=== PATIENT | male | born 1970 | race Caucasian/White ===

== ENCOUNTER 2019-09-26 12:19 | Inpatient (IN) | payer OTHER ==
[2019-09-26 15:29] VITALS: BMI 32.5
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
[2019-09-26] MEDS ORDERED: PROCHLORPERAZINE MALEATE 5 MG TABLET PO PRN (16:11)
[2019-09-26] MEDS ORDERED: ACETAMINOPHEN 325 MG TABLET (FP) PO PRN ×2 (16:11)
[2019-09-26] MEDS ORDERED: MENTHOL/PHENOL 1 EACH UD MM PRN (16:11)
[2019-09-26] MEDS ORDERED: IBUPROFEN 400 MG TABLET (FP) PO PRN (16:11)
[2019-09-26] MEDS ORDERED: MAG HYDROX/AL HYDROX/SIMETH 30 ML UNIT-DOSE CUP PO PRN (16:11)
[2019-09-26] MEDS ORDERED: METHOCARBAMOL 500 MG TABLET PO PRN (16:11)
[2019-09-26] MEDS ORDERED: BISMUTH SUBSALICYLATE 524 MG/30 ML UD PO PRN (16:11)
[2019-09-26] MEDS ORDERED: MAGNESIUM HYDROX 2400MG/30ML ORAL SUSPENSION 30 ML CUP PO PRN (16:11)
[2019-09-26] MEDS ORDERED: MAGNESIUM CITRATE 300 ML BOTTLE PO PRN (16:11)
[2019-09-26] MEDS ORDERED: hydrOXYzine PAMOATE 25 MG CAPSULE (FP) PO PRN (16:11)
[2019-09-26] MEDS ORDERED: cloNIDine HCL 0.1 MG TABLET PO PRN (16:13)
[2019-09-26] MEDS: diazePAM 5 MG TABLET PO PRN (17:30)
[2019-09-26] MEDS: THIAMINE HCL 100 MG TABLET (FP) PO SCH (22:12)
[2019-09-26] MEDS ORDERED: METHADONE HCL 10 MG TABLET (FOR DETOX USE ONLY) PO ONE (23:00)
[2019-09-27] MEDS: NICOTINE POLACRILEX 2 MG GUM BUC PRN ×4 (00:42→18:29)
--- NOTE | 2019-09-27 09:56 | CONSULT ---
[facility] Consult - Data Date of interview: 09/27/19 [facility] Identifying data: Patient is a 48 year old single male, father of two, unemployed, homeless, and is not supported with any financial assistance. Patient admitted to for alcohol, cocaine and opiate dependence. Substance Abuse History: Smoking Cessation. Smoking history: Current every day smoker. Hx Chewing Tobacco Use: No. Initiated information on smoking cessation : No. - Substances abused. Alcohol. Substance route: Oral. Frequency: Daily. Amount used: 4 cans of 24 oz beers. Age of first use: 20. Date of last use: 09/26/19. Heroin. Substance route: Inhalation. Frequency: Daily. Amount used: 10-11bags. Age of first use: 18. Date of last use: . Crack. Substance route: Smoking. Frequency: Daily. Amount used: 6-7 bags. Age of first use: 18. Date of last use: 09/26/19 Medical History: denies. endorses good health. Psychiatric History: Patient denies history of psychiatric hospitalizations and suicide attempt. Mr. Gupta reports seeing a psychiatrist once in an outpatient setting approximately 10 years ago for depression. Patient unable to recall the medications prescribed. At present patient reports feeling fatigue as he had difficulty sleeping last night. Physical/Sexual Abuse/Trauma History: denies. Mental Status Exam - Mental Status Exam Alert and Oriented to: Time, Place, Person Cognitive Function: Good Patient Appearance: Well Groomed Mood: Withdrawn Affect: Mood Congruent Patient Behavior: Fatigued, Cooperative Speech Pattern: Appropriate Voice Loudness: Moderately Soft/Quiet Thought Process: Intact, Goal Oriented Thought Disorder: Not Present Hallucinations: Denies Suicidal Ideation: Denies Homicidal Ideation: Denies Insight/Judgement: Poor Sleep: Poorly Appetite: Fair Muscle strength/Tone: Normal Gait/Station: Normal Psychiatric Findings - Problem List ([place] 1, 2,3) (1) Opiate dependence Current Visit: Yes Status: Acute (2) Cocaine dependence Current Visit: Yes Status: Chronic Qualifiers: Substance use status: uncomplicated Qualified Code(s): F14.20 - Cocaine dependence, uncomplicated (3) Nicotine dependence Current Visit: Yes Status: Chronic Qualifiers: Nicotine product type: cigarettes (4) Substance-induced sleep disorder Current Visit: Yes Status: Acute - Initial Treatment Plan Initial Treatment Plan: Psychoeducation provided. Detoxification in progress. Melatonin 5mg ordered for insomnia.
[2019-09-27] MEDS ORDERED: METHADONE HCL 5 MG TABLET (FOR DETOX USE ONLY) PO ONE ×2 (10:00→12:00)
[2019-09-27] MEDS: PRENATAL VITAMINS W/ FOLIC ACID TABLET (FP) PO SCH (10:34)
[2019-09-27 10:40] LABS: HEMATOCRIT 39.9 % (35.4-49); HEMOGLOBIN 13.3 GM/dL (11.7-16.9); MCH 31.2 pg (25.7-33.7); MCHC 33.2 g/dl (32.0-35.9); MEAN CELL VOLUME 94.1 fl (80-96); MEAN PLT VOLUME 9.2 fl (7.5-11.1); PLATELET COUNT 321 K/MM3 (134-434); RBC 4.24 M/mm3 (4.00-5.60); RDW 14.5 % (11.9-15.9); WHITE BLOOD COUNT 9.2 K/mm3 (4.0-10.0)
[2019-09-27 10:56] LABS: ALBUMIN 3.6 g/dl (3.4-5.0); BILIRUBIN,TOTAL 0.2 mg/dL (0.2-1); BLOOD UREA NITROGEN 20.4 mg/dL (7-18); CALCIUM 9.2 mg/dL (8.5-10.1); POTASSIUM 4.5 mmol/L (3.5-5.1); TOT PROT 7.1 g/dl (6.4-8.2)
--- NOTE | 2019-09-27 11:44 | PN ---
[facility] CIWA - CIWA Score Nausea/Vomitin-No Nausea/No Vomiting Muscle Tremors: 4-Moderate,w/Arms Extend Anxiety: 4-Mod. Anxious/Guarded Agitation: 4-Moderately Restless Paroxysmal Sweats: 3 Orientation: 0-Oriented Tacttile Disturbances: 0-None Auditory Disturbances: 0-None Visual Disturbances: 0-None Headache: 0-None Present CIWA-Ar Total Score: 15 S COWS - Scale Resting Pulse: 0= [place] 80 or Below Sweatin= Chills/Flushing Restless Observation: 1= Difficult to Sit Still Pupil Size: 0= Normal to Room Light Bone or Joint Aches: 2= Severe Diffuse Aches Runny Nose/ Eye Tearin= Runny Nose/Eyes GI Upset > 30mins: 0= None Tremor Observation of Outstretched Hands: 2= Slight Tremor Visible Yawning Observation: 2= >3x During Session Anxiety or Irritability: 2=Irritable/Anxious Goose Flesh Skin: 0=Smooth Skin COWS Score: 12 S Progress Note (SOAP) Subjective: sweats shakes yawning agitation body aches restless Objective: 09/27/19 13:49 Vital Signs Temperature 98.0 F 09/27/19 09:38 Pulse Rate 60 09/27/19 09:38 Respiratory Rate 18 09/27/19 09:38 Blood Pressure 138/65 09/27/19 09:38 O2 Sat by Pulse Oximetry (%) Laboratory Tests 09/27/19 09/27/19 09/27/19 07:20 07:20 07:20 WBC 9.2 RBC 4.24 Hgb 13.3 Hct 39.9 MCV 94.1 MCH 31.2 MCHC 33.2 RDW 14.5 Plt Count 321 MPV 9.2 Sodium 138 Potassium 4.5 Chloride 102 Carbon Dioxide 33 H Anion Gap 3 L BUN 20.4 H Creatinine 1.0 Est GFR (CKD-EPI)AfAm 104.15 Est GFR (CKD-EPI)NonAf 89.86 Random Glucose 108 H Calcium 9.2 Total Bilirubin 0.2 AST 39 H ALT 78 H Alkaline Phosphatase 176 H Total Protein 7.1 Albumin 3.6 RPR Titer Nonreactive labs noted elevated BUN noted; encourage water intake aaox3 ambulating no acute distress Assessment: 09/27/19 13:50 withdrawals will modify methadone taper; pt in agreement Plan: continue with new methadone taper as ordered increase fluids
[2019-09-27] MEDS: MELATONIN 5 MG TABLETS PO PRN (22:10)
[2019-09-27] MEDS: THIAMINE HCL 100 MG TABLET (FP) PO SCH (22:10)
[2019-09-27] MEDS: diazePAM 5 MG TABLET PO PRN (22:10)
[2019-09-28] MEDS ORDERED: METHADONE HCL 5 MG TABLET (FOR DETOX USE ONLY) ONE (09:27)
[2019-09-28] MEDS ORDERED: METHADONE HCL 10 MG TABLET (FOR DETOX USE ONLY) ONE (09:28)
[2019-09-28] MEDS ORDERED: METHADONE (DETOX) 20 MG, METHADONE (DETOX) 5 MG PO ONE (10:00)
[2019-09-28] MEDS ORDERED: METHADONE HCL 10 MG TABLET (FOR DETOX USE ONLY) PO ONE (10:00)
[2019-09-28] MEDS: PRENATAL VITAMINS W/ FOLIC ACID TABLET (FP) PO SCH (10:00)
--- NOTE | 2019-09-28 10:07 | EKG ---
Test Reason : Blood Pressure : / mmHG Vent. Rate : 054 BPM Atrial Rate : 054 BPM P-R Int : 142 ms QRS Dur : 080 ms QT Int : 452 ms P-R-T Axes : 074 -13 004 degrees QTc Int : 428 ms SINUS BRADYCARDIA OTHERWISE NORMAL ECG NO PREVIOUS ECGS AVAILABLE Confirmed by TIFF GOLD MD ([id number]) on 09/28/2019 10:07:23 AM Referred By: Confirmed By:TIFF GOLD MD
--- NOTE | 2019-09-28 11:12 | PN ---
[facility] CIWA - CIWA Score Nausea/Vomitin-No Nausea/No Vomiting Muscle Tremors: 1-None Visible, but [place] Anxiety: 3 Agitation: 1-Slight > Activity Paroxysmal Sweats: 1-Minimal Palms Moist Orientation: 0-Oriented Tacttile Disturbances: 2-Mild Itch/Numbness/Burn Auditory Disturbances: 0-None Visual Disturbances: 2-Mild Sensitivity Headache: 0-None Present CIWA-Ar Total Score: 10 [facility] COWS - Scale Resting Pulse: 1= [place] 81-100 Sweatin= Chills/Flushing Restless Observation: 1= Difficult to Sit Still Pupil Size: 0= Normal to Room Light Bone or Joint Aches: 1= Mild Discomfort Runny Nose/ Eye Tearin= Runny Nose/Eyes GI Upset > 30mins: 1= Stomach Cramp Tremor Observation of Outstretched Hands: 1= Tremor [place], Not Seen Yawning Observation: 1= 1-2x During Session Anxiety or Irritability: 2=Irritable/Anxious Goose Flesh Skin: 0=Smooth Skin COWS Score: 11 [facility] Progress Note (SOAP) Subjective: c/o interrupted sleep, chills, sweats, body aches Objective: 09/28/19 11:12 Vital Signs Temperature 98 F 09/28/19 09:54 Pulse Rate 84 09/28/19 09:54 Respiratory Rate 18 09/28/19 09:54 Blood Pressure 125/77 09/28/19 09:54 O2 Sat by Pulse Oximetry (%) Laboratory Last Values WBC 9.2 K/mm3 (4.0-10.0) 09/27/19 07:20 RBC 4.24 M/mm3 (4.00-5.60) 09/27/19 07:20 Hgb 13.3 GM/dL (11.7-16.9) 09/27/19 07:20 Hct 39.9 % (35.4-49) 09/27/19 07:20 MCV 94.1 fl (80-96) 09/27/19 07:20 MCH 31.2 pg (25.7-33.7) 09/27/19 07:20 MCHC 33.2 g/dl (32.0-35.9) 09/27/19 07:20 RDW 14.5 % (11.9-15.9) 09/27/19 07:20 Plt Count 321 K/MM3 (134-434) 09/27/19 07:20 MPV 9.2 fl (7.5-11.1) 09/27/19 07:20 Sodium 138 mmol/L (136-145) 09/27/19 07:20 Potassium 4.5 mmol/L (3.5-5.1) 09/27/19 07:20 Chloride 102 mmol/L (98-107) 09/27/19 07:20 Carbon Dioxide 33 mmol/L (21-32) H 09/27/19 07:20 Anion Gap 3 MMOL/L (8-16) L 09/27/19 07:20 BUN 20.4 mg/dL (7-18) H 09/27/19 07:20 Creatinine 1.0 mg/dL (0.55-1.3) 09/27/19 07:20 Est GFR (CKD-EPI)AfAm 104.15 09/27/19 07:20 Est GFR (CKD-EPI)NonAf 89.86 09/27/19 07:20 Random Glucose 108 mg/dL (74-106) H 09/27/19 07:20 Calcium 9.2 mg/dL (8.5-10.1) 09/27/19 07:20 Total Bilirubin 0.2 mg/dL (0.2-1) 09/27/19 07:20 AST 39 U/L (15-37) H 09/27/19 07:20 ALT 78 U/L (13-61) H 09/27/19 07:20 Alkaline Phosphatase 176 U/L (45-117) H 09/27/19 07:20 Total Protein 7.1 g/dl (6.4-8.2) 09/27/19 07:20 Albumin 3.6 g/dl (3.4-5.0) 09/27/19 07:20 RPR Titer Nonreactive (NONREACTIVE) 09/27/19 07:20 Assessment: 09/28/19 14:02 Aox3 no acute distress EENT WNL Full ROM ambulating in the unit withdrawal sx Plan: increase fluids repeat CMP Patient advised to follow up with primary care provider upon d/c d/t elevated LFTS, patient verbalizes understanding continue detox continue to monitor
[2019-09-28] MEDS: NICOTINE POLACRILEX 2 MG GUM BUC PRN ×2 (19:57→22:07)
[2019-09-28] MEDS: MELATONIN 5 MG TABLETS PO PRN (22:06)
[2019-09-28] MEDS: THIAMINE HCL 100 MG TABLET (FP) PO SCH (22:06)
[2019-09-29] MEDS ORDERED: METHADONE HCL 5 MG TABLET (FOR DETOX USE ONLY) PO ONE (06:00)
[2019-09-29] MEDS: PRENATAL VITAMINS W/ FOLIC ACID TABLET (FP) PO SCH (09:04)
--- NOTE | 2019-09-29 09:53 | PN ---
[facility] CIWA - CIWA Score Nausea/Vomitin-No Nausea/No Vomiting Muscle Tremors: 2 Anxiety: 1-Mildly Anxious Agitation: 1-Slight > Activity Paroxysmal Sweats: 2 Orientation: 0-Oriented Tacttile Disturbances: 0-None Auditory Disturbances: 0-None Visual Disturbances: 0-None Headache: 0-None Present CIWA-Ar Total Score: 6 S COWS - Scale Resting Pulse: 0= [place] 80 or Below Sweatin= Chills/Flushing Restless Observation: 1= Difficult to Sit Still Pupil Size: 0= Normal to Room Light Bone or Joint Aches: 2= Severe Diffuse Aches Runny Nose/ Eye Tearin= Runny Nose/Eyes GI Upset > 30mins: 0= None Tremor Observation of Outstretched Hands: 1= Tremor [place], Not Seen Yawning Observation: 2= >3x During Session Anxiety or Irritability: 1=Feels Anxious/Irritable Goose Flesh Skin: 0=Smooth Skin COWS Score: 10 [facility] Progress Note (SOAP) Subjective: sweats shakes restless body aches Objective: 09/29/19 09:53 Vital Signs Temperature 99.2 F 09/29/19 09:29 Pulse Rate 74 09/29/19 09:29 Respiratory Rate 18 09/29/19 09:29 Blood Pressure 130/73 09/29/19 09:29 O2 Sat by Pulse Oximetry (%) Laboratory Tests 09/27/19 09/27/19 09/27/19 07:20 07:20 07:20 WBC 9.2 RBC 4.24 Hgb 13.3 Hct 39.9 MCV 94.1 MCH 31.2 MCHC 33.2 RDW 14.5 Plt Count 321 MPV 9.2 Sodium 138 Potassium 4.5 Chloride 102 Carbon Dioxide 33 H Anion Gap 3 L BUN 20.4 H Creatinine 1.0 Est GFR (CKD-EPI)AfAm 104.15 Est GFR (CKD-EPI)NonAf 89.86 Random Glucose 108 H Calcium 9.2 Total Bilirubin 0.2 AST 39 H ALT 78 H Alkaline Phosphatase 176 H Total Protein 7.1 Albumin 3.6 RPR Titer Nonreactive aaox3 ambulating no acute distress Assessment: 09/29/19 09:53 withdrawals Plan: continue detox increase fluids
[2019-09-29] MEDS ORDERED: METHADONE HCL 10 MG TABLET (FOR DETOX USE ONLY) PO ONE (10:00)
[2019-09-29 10:47] LABS: BILIRUBIN,TOTAL 0.4 mg/dL (0.2-1); BLOOD UREA NITROGEN 19.1 mg/dL (7-18); CALCIUM 9.1 mg/dL (8.5-10.1); POTASSIUM 4.1 mmol/L (3.5-5.1); TOT PROT 6.3 g/dl (6.4-8.2)
[2019-09-29 17:30] VITALS: TEMP 98.1
[2019-09-29] MEDS: NICOTINE POLACRILEX 2 MG GUM BUC PRN (20:16)
[2019-09-29] MEDS: THIAMINE HCL 100 MG TABLET (FP) PO SCH (22:01)
[2019-09-29] MEDS: MELATONIN 5 MG TABLETS PO PRN (22:02)
--- NOTE | 2019-09-30 08:22 | DS ---
[facility] Detox Discharge Summary Admission Date: 09/26/19 Discharge Date: 09/30/19 - History Present History: Alcohol Dependence, Cocaine Dependence, Opioid Dependence - Physical Exam Results Vital Signs: Vital Signs Temperature 98.1 F 09/30/19 06:47 Pulse Rate 58 L 09/30/19 06:47 Respiratory Rate 18 09/30/19 06:47 Blood Pressure 119/73 09/30/19 06:47 O2 Sat by Pulse Oximetry (%) - Treatment Hospital Course: Detox Protocol Followed, Responded well - Medication Discharge Medications: Ambulatory Orders NK [No Known Home Medication] 09/26/19 - Diagnosis (1) Opiate dependence Current Visit: Yes Status: Acute (2) Alcohol abuse Current Visit: Yes Status: Chronic (3) Cocaine dependence Current Visit: Yes Status: Chronic Qualifiers: Substance use status: uncomplicated Qualified Code(s): F14.20 - Cocaine dependence, uncomplicated (4) Nicotine dependence Current Visit: Yes Status: Chronic Qualifiers: Nicotine product type: cigarettes - AMA Did Patient Leave Against Medical Advice: Yes (States he has things to do. )
[2019-09-30] MEDS ORDERED: METHADONE HCL 5 MG TABLET (FOR DETOX USE ONLY) ONE (08:50)
[2019-09-30] MEDS ORDERED: METHADONE HCL 10 MG TABLET (FOR DETOX USE ONLY) ONE (08:50)
[2019-09-30] MEDS: PRENATAL VITAMINS W/ FOLIC ACID TABLET (FP) PO SCH (09:04)
[2019-09-30 09:31] VITALS: BP 129/79; PULSE 86
[2019-09-30] MEDS ORDERED: METHADONE (DETOX) 10 MG, METHADONE (DETOX) 5 MG PO ONE (10:00)
[2019-10-01] MEDS ORDERED: METHADONE HCL 10 MG TABLET (FOR DETOX USE ONLY) PO ONE (10:00)
[2019-10-02] MEDS ORDERED: METHADONE HCL 5 MG TABLET (FOR DETOX USE ONLY) PO ONE (06:00)
== END 2019-09-30 09:21 | disposition left against medical advice (07) | DRG 770 ==
LOC: YASAS 12:19 → Y3N 16:26 → Y6N 16:32
PROVIDERS: ADMIT Allergy & Immunology; ATTEND Allergy & Immunology
PROC: HZ2ZZZZ Detoxification Services for Substance Abuse Treatment (ICD-10-PCS; principal; 2019-09-26)
DX: F11.23 Opioid dependence with withdrawal (principal); F10.230 Alcohol dependence with withdrawal, uncomplicated; F14.20 Cocaine dependence, uncomplicated; F17.210 Nicotine dependence, cigarettes, uncomplicated; F19.282 Other psychoactive substance dependence with psychoactive substance-induced sleep disorder
CPT/HCPCS: 36415; 80053; 85027; 86593; 93005; 93010

== ENCOUNTER 2021-09-26 13:22 | Inpatient (IN) | payer OTHER ==
[2021-09-26] MEDS ORDERED: MAGNESIUM HYDROX 2400MG/30ML ORAL SUSPENSION 30 ML CUP PO PRN (13:52)
[2021-09-26] MEDS ORDERED: BISMUTH SUBSALICYLATE 262 MG/15 ML BTL PO PRN (13:52)
[2021-09-26] MEDS ORDERED: methaDONE HCL 10 MG TABLET (FOR DETOX USE ONLY) PO ONE (13:52)
[2021-09-26] MEDS ORDERED: MENTHOL/PHENOL 1 EACH UD MM PRN (13:52)
[2021-09-26] MEDS ORDERED: MAG HYDROX/AL HYDROX/SIMETH 30 ML UNIT-DOSE CUP PO PRN (13:52)
[2021-09-26] MEDS ORDERED: IBUPROFEN 400 MG TABLET (FP) PO PRN (13:52)
[2021-09-26] MEDS ORDERED: NICOTINE 10 MG CARTRIDGE (INHALER) IH PRN (13:52)
[2021-09-26] MEDS ORDERED: ACETAMINOPHEN 325 MG TABLET (FP) PO PRN ×2 (13:52)
[2021-09-26] MEDS ORDERED: ONDANSETRON *ODT* 4 MG TABLET SL PRN (13:52)
[2021-09-26] MEDS ORDERED: MAGNESIUM CITRATE 300 ML BOTTLE PO PRN (13:52)
[2021-09-26 14:06] VITALS: BMI 35.1
[2021-09-26] MEDS ORDERED: methaDONE HCL 10 MG TABLET (FOR DETOX USE ONLY) ONE (14:47)
[2021-09-26] MEDS: NICOTINE 14 MG/24 HOURS TOPICAL PATCH TD SCH (15:40)
[2021-09-26] MEDS: hydrOXYzine PAMOATE 25 MG CAPSULE (FP) PO SCH ×3 (15:55→22:31)
[2021-09-26 17:37] LABS: HEMATOCRIT 40.1 % (35.4-49); HEMOGLOBIN 13.3 GM/dL (11.7-16.9); MCH 30.6 pg (25.7-33.7); MCHC 33.3 g/dl (32.0-35.9); MEAN CELL VOLUME 91.9 fl (80-96); MEAN PLT VOLUME 8.8 fl (7.5-11.1); PLATELET COUNT 343 10^3/uL (134-434); RBC 4.36 M/mm3 (4.00-5.60); WHITE BLOOD COUNT 6.6 K/mm3 (4.0-10.0)
[2021-09-26 18:06] LABS: CALCIUM 9.1 mg/dL (8.5-10.1)
[2021-09-26 18:07] LABS: ALBUMIN 3.6 g/dl (3.4-5.0); BLOOD UREA NITROGEN 15.2 mg/dL (7-18)
[2021-09-26 18:09] LABS: CREATININE 1.1 mg/dL (0.55-1.3)
[2021-09-26 18:11] LABS: BILIRUBIN,TOTAL 0.7 mg/dL (0.2-1); TOT PROT 7.2 g/dl (6.4-8.2)
[2021-09-26] MEDS: MELATONIN 5 MG TABLETS PO SCH (22:30)
[2021-09-26] MEDS: THIAMINE HCL 100 MG TABLET (FP) PO SCH (22:31)
[2021-09-27] MEDS: hydrOXYzine PAMOATE 25 MG CAPSULE (FP) PO SCH ×5 (06:23→22:43)
[2021-09-27] MEDS ORDERED: methaDONE HCL 10 MG TABLET (FOR DETOX USE ONLY) ONE (09:39)
[2021-09-27] MEDS: METHOCARBAMOL 500 MG TABLET PO PRN ×2 (10:09→18:21)
[2021-09-27] MEDS: NICOTINE 14 MG/24 HOURS TOPICAL PATCH TD SCH (10:09)
[2021-09-27] MEDS: PRENATAL VITAMINS W/ FOLIC ACID TABLET (FP) PO SCH (10:09)
[2021-09-27] MEDS: cloNIDine HCL 0.1 MG TABLET PO PRN ×2 (10:10→18:22)
[2021-09-27 16:07] LABS: HIV INTERPRETATION NEGATIVE (NEGATIVE)
[2021-09-27] MEDS: THIAMINE HCL 100 MG TABLET (FP) PO SCH (22:43)
[2021-09-27] MEDS: MELATONIN 5 MG TABLETS PO SCH (22:43)
[2021-09-28] MEDS: hydrOXYzine PAMOATE 25 MG CAPSULE (FP) PO SCH ×5 (06:00→22:40)
[2021-09-28] MEDS: METHOCARBAMOL 500 MG TABLET PO PRN ×2 (06:01→22:40)
[2021-09-28] MEDS: NICOTINE POLACRILEX 2 MG GUM BUC PRN (07:31)
[2021-09-28] MEDS: NICOTINE 14 MG/24 HOURS TOPICAL PATCH TD SCH (09:35)
[2021-09-28] MEDS: PRENATAL VITAMINS W/ FOLIC ACID TABLET (FP) PO SCH (09:35)
[2021-09-28] MEDS: cloNIDine HCL 0.1 MG TABLET PO PRN (09:35)
[2021-09-28] MEDS: diazePAM 5 MG TABLET PO PRN ×2 (09:35→22:40)
[2021-09-28] MEDS ORDERED: methaDONE HCL 10 MG TABLET (FOR DETOX USE ONLY) PO ONE (10:00)
[2021-09-28 13:17] LABS: ALBUMIN 3.7 g/dl (3.4-5.0)
[2021-09-28 13:22] LABS: BILIRUBIN,DIRECT 0.1 mg/dL (0.0-0.2); BILIRUBIN,TOTAL 0.5 mg/dL (0.2-1); TOT PROT 7.3 g/dl (6.4-8.2)
[2021-09-28] MEDS: MELATONIN 5 MG TABLETS PO SCH (22:40)
[2021-09-28] MEDS: THIAMINE HCL 100 MG TABLET (FP) PO SCH (22:40)
[2021-09-29] MEDS: hydrOXYzine PAMOATE 25 MG CAPSULE (FP) PO SCH ×5 (05:46→22:11)
[2021-09-29] MEDS: diazePAM 5 MG TABLET PO PRN ×3 (05:46→22:12)
[2021-09-29] MEDS ORDERED: methaDONE HCL 10 MG TABLET (FOR DETOX USE ONLY) ONE (08:36)
[2021-09-29 10:01] LABS: ALBUMIN 3.7 g/dl (3.4-5.0)
[2021-09-29 10:04] LABS: BILIRUBIN,DIRECT 0.1 mg/dL (0.0-0.2)
[2021-09-29 10:05] LABS: BILIRUBIN,TOTAL 0.5 mg/dL (0.2-1)
[2021-09-29 10:06] LABS: TOT PROT 7.3 g/dl (6.4-8.2)
[2021-09-29] MEDS: PRENATAL VITAMINS W/ FOLIC ACID TABLET (FP) PO SCH (10:07)
[2021-09-29] MEDS: NICOTINE 14 MG/24 HOURS TOPICAL PATCH TD SCH (10:07)
[2021-09-29] MEDS: METHOCARBAMOL 500 MG TABLET PO PRN (10:07)
[2021-09-29] MEDS: NICOTINE POLACRILEX 2 MG GUM BUC PRN (10:07)
[2021-09-29] MEDS: MELATONIN 5 MG TABLETS PO SCH (22:11)
[2021-09-29] MEDS: THIAMINE HCL 100 MG TABLET (FP) PO SCH (22:11)
[2021-09-30] MEDS: diazePAM 5 MG TABLET PO PRN ×4 (02:14→22:16)
[2021-09-30] MEDS: hydrOXYzine PAMOATE 25 MG CAPSULE (FP) PO SCH ×5 (06:17→22:17)
[2021-09-30] MEDS ORDERED: methaDONE HCL 10 MG TABLET (FOR DETOX USE ONLY) PO ONE (10:00)
[2021-09-30] MEDS: NICOTINE 14 MG/24 HOURS TOPICAL PATCH TD SCH (10:56)
[2021-09-30] MEDS: PRENATAL VITAMINS W/ FOLIC ACID TABLET (FP) PO SCH (10:56)
[2021-09-30] MEDS: METHOCARBAMOL 500 MG TABLET PO PRN (22:16)
[2021-09-30] MEDS: MELATONIN 5 MG TABLETS PO SCH (22:17)
[2021-09-30] MEDS: THIAMINE HCL 100 MG TABLET (FP) PO SCH (22:17)
[2021-10-01] MEDS: diazePAM 5 MG TABLET PO PRN (05:43)
[2021-10-01] MEDS: hydrOXYzine PAMOATE 25 MG CAPSULE (FP) PO SCH (05:44)
[2021-10-01 06:56] VITALS: BP 138/84; PULSE 77; TEMP 97.1
== END 2021-10-01 08:40 | disposition home or self-care (01) | DRG 773 ==
LOC: YASAS 13:22 → Y3N 14:09
PROVIDERS: ADMIT Allergy & Immunology; ATTEND Allergy & Immunology
PROC: HZ2ZZZZ Detoxification Services for Substance Abuse Treatment (ICD-10-PCS; principal; 2021-09-26)
DX: F11.23 Opioid dependence with withdrawal (principal); F10.20 Alcohol dependence, uncomplicated; F14.20 Cocaine dependence, uncomplicated; F17.210 Nicotine dependence, cigarettes, uncomplicated; F19.282 Other psychoactive substance dependence with psychoactive substance-induced sleep disorder; F19.24 Other psychoactive substance dependence with psychoactive substance-induced mood disorder; F31.9 Bipolar disorder, unspecified; G47.00 Insomnia, unspecified; Z87.828 Personal history of other (healed) physical injury and trauma; Z91.19 Patient's noncompliance with other medical treatment and regimen
CPT/HCPCS: 36415; 80053; 80076; 85027; 86780; 87389; C9803; J0735; U0003; U0005